=== PATIENT | male | born 1985 | race Caucasian/White ===

== ENCOUNTER 2018-07-31 11:23 | Inpatient (IN) | payer OTHER ==
[~2018-07-31] VITALS: Ht 185.4 cm; Wt 63.5 kg
[2018-07-31] MEDS ORDERED: HYDROmorphone 2 MG/ML VIAL IV ONE (11:45)
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
--- NOTE | 2018-07-31 12:19 | EKG ---
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
[2018-07-31 12:23] LABS: BASO % 0 % (0-3); EOS % 0 % (0-3); HEMATOCRIT 40.1 % (39.0-53.0); HEMOGLOBIN 14.2 g/dL (13.0-17.5); LYMPH # 0.8 x10^3/uL (1.0-4.8); LYMPH % 7 % (24-48); MEAN CORPUSCULAR HEMOGLOBIN 32 pg (25-35); MEAN CORPUSCULAR HGB CONC 36 g/dL (31-37); MEAN CORPUSCULAR VOLUME 89 fL (79-100); MONO # 0.4 x10^3/uL (0.0-1.1); MONO % 4 % (0-9); NEUT # 9.5 x10^3uL (1.8-7.7); NEUT % 88 % (31-73); PLATELET COUNT 279 x10^3/uL (140-400); RED BLOOD COUNT 4.53 x10^6/uL (4.30-5.70); RED CELL DISTRIBUTION WIDTH 12.7 % (11.5-14.5); WHITE BLOOD COUNT 10.8 x10^3/uL (4.0-11.0)
--- NOTE | 2018-07-31 12:24 | RAD ---
Portable chest, 07/31/2018: HISTORY: Preop evaluation, hip fracture The heart size and pulmonary vascularity are normal. No pulmonary infiltrate is seen. There is no evidence of pleural fluid. A mild thoracic scoliosis is noted. IMPRESSION: No acute cardiopulmonary abnormality is detected. Electronically signed by: Carlos Burleson MD (07/31/2018 12:21 PM) [facility]
[2018-07-31 12:31] LABS: CALCIUM 8.9 mg/dL (8.5-10.1); CREATININE 0.7 mg/dL (0.7-1.3); GFR 129.1; POTASSIUM 3.7 mmol/L (3.5-5.1)
[2018-07-31 12:54] LABS: % BANDS 2 % (0-9); % LYMPHS 7 % (24-48); % MONOS 2 % (0-10); % SEGS 89 % (35-66); PLT ESTIMATE ADEQUATE (ADEQUATE)
[2018-07-31] MEDS ORDERED: IV DEXTROSE 5%-LACT RINGERS 1,000 ML IV ONE (13:00)
[2018-07-31] MEDS ORDERED: MORPHINE SULFATE 4 MG/ML VIAL. IV PRN (13:00)
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
[2018-07-31 14:30] VITALS: BP 136/81
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
[2018-07-31] MEDS ORDERED: KETOROLAC 30 MG/ML VIAL. IV PRN (16:15)
[2018-07-31] MEDS ORDERED: HYDROcodone/APAP 5/325MG 1 TAB TABLET PO PRN (16:15)
[2018-07-31] MEDS ORDERED: ACETAMINOPHEN 325 MG TABLET. PO PRN (16:15)
[2018-07-31] MEDS ORDERED: BISACODYL 10 MG SUPP.RECT. PR PRN (16:15)
[2018-07-31] MEDS ORDERED: LACTULOSE 20 GM/30 ML SOLUTION. PO PRN (16:15)
[2018-07-31] MEDS ORDERED: ONDANSETRON PF 4 MG/2 ML VIAL. IV PRN (16:15)
[2018-07-31] MEDS ORDERED: HALOPERIDOL 0.5 MG TABLET. PO PRN (16:30)
[2018-07-31 19:00] VITALS: BP 117/75
[2018-07-31] MEDS: MIRTAZAPINE 15 MG TABLET PO SCH (21:39)
[2018-07-31] MEDS: SENNOSIDES/DOCUSATE 8.6/50MG TABLET. PO SCH (21:39)
[2018-07-31] MEDS: OLANZapine 5 MG TABLET PO SCH (21:40)
[2018-07-31 23:00] VITALS: BP 115/61
[2018-08-01] VITALS (9 sets, daily range): BP systolic 108–139; BP diastolic 54–84
[2018-08-01] MEDS ORDERED: MORPHINE SULFATE 5 MG, KETOROLAC 30MG VIAL 30 MG, ROPIVacaine 0.5% PF 60 ML, EPINEPHrin... INT ART ONE ×5 (06:00)
[2018-08-01] MEDS: MORPHINE SULFATE 2 MG/ML VIAL. IV PRN ×2 (08:54→16:16)
[2018-08-01] MEDS: SENNOSIDES/DOCUSATE 8.6/50MG TABLET. PO SCH ×2 (09:00→20:52)
[2018-08-01] MEDS: OLANZapine 5 MG TABLET PO SCH ×3 (09:00→20:53)
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
[2018-08-01] MEDS ORDERED: ceFAZolin SODIUM 1 GM in IV DEXTROSE 5% 50 ML IV ONE (09:45)
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
[2018-08-01] MEDS ORDERED: PROPOFOL 20 ML IV ONE ×2 (12:57→15:16)
[2018-08-01] MEDS ORDERED: LIDOCAINE 2% PF Vial for OR 5 ML VIAL. ONE (12:57)
[2018-08-01] MEDS ORDERED: ONDANSETRON PF 4 MG/2 ML VIAL. ONE (12:58)
[2018-08-01] MEDS ORDERED: ROCURONIUM 50 MG/5 ML VIAL. ONE (12:58)
[2018-08-01] MEDS ORDERED: DEXAMETHASONE SOD PHOS 20 MG/5 ML VIAL. ONE (12:58)
[2018-08-01] MEDS ORDERED: fentaNYL PF VIAL 100 MCG/2 ML VIAL ONE ×2 (12:59→14:33)
[2018-08-01] MEDS ORDERED: MIDAZOLAM HCL/PF 2 MG/2 ML VIAL. ONE (13:00)
--- NOTE | 2018-08-01 13:55 | PDOC4 ---
Operative Note Operative Note Date of procedure: 08/01/2018 Surgeon: Mo Godfrey [place] Coach: Vidya Springer, certified driver examiner Preoperative diagnosis: Subacute displaced left femoral neck fracture Postoperative diagnosis: Same Procedure performed: Left hip hemiarthroplasty Anesthesia: Gen. Blood loss: 300 mL Complications: None Components inserted: Mtz and nephew size 4 standard offset anthology femoral stem with a 46 mm +0 unipolar COBOL chrome head Reason for procedure: Patient is a 32-year-old inmate with schizophrenia who was recently found to have a femoral neck fracture, uncertain timeframe when he suffered this injury. I had a discussion of the pros and cons regarding treatment options with him and in the end we opted to proceed with a left hip hemiarthroplasty. Description of procedure: Patient was greeted preoperative area by myself for the correct extremity was verified and marked. Antibiotics were started as he was brought back to the operating room. Once in the operative room, he had successful induction of a general anesthetic we then transferred him gently supine to the operating table and secured to bed with all pressure points padded and a lateral decubitus position with the left side up and axillary roll was used. He was held the bed with our hip positioning devices. Left lower extremity was then prepped and draped in our usual sterile fashion including an [place]. Standard timeout was conducted. I then palpated and marked surface anatomy and made my standard posterolateral skin incision. Electrocautery was used for dissection and hemostasis. Identified the fascia a lot of his thigh and split this in line with skin incision, bluntly splitting the gluteus mita proximally through its fibers. I swept result tissue posteriorly. I then placed myself retaining retractor and had his knee padded on a well-padded Jenkins stand. I then took down the quadratus and piriformis and take the piriformis for later repair. Identified the hip capsule and incised this in a T-type incision. After this, I identified the fracture site and performed my neck cut 1 cm proximal to the lesser trochanter remove this bony debris. I then remove the femoral head from the acetabulum and inspected the acetabulum. Fairly free from wear. No loose debris. I irrigated out thoroughly. The femoral head was measured and I trialed various head sizes and selected the above size. After this, repositioned the leg and used the proximal femoral elevator to help facilitate this. I began with the britney cutting osteotome followed by the canal finding reamer followed by the lateralizing reamer. After this, I broached up to the selected size which I felt gave a good fit and fill. I then trialed about combinations of length and offset and felt the above combination gave the best range of motion and stability. All trial components removed and the operative field was thoroughly irrigated. I then impacted the stem into position and trialed head sizes, I selected the above sizes. I felt this would give him good range of motion stability and leg length. The Lopez taper region was washed and dried after the hip was dislocated again. The head was gently impacted in position and the hip was reduced. Capsule was closed with simple interrupted #2 Ethibond. Piriformis was reapproximated through drill tunnels. Quadratus was repaired with [id number] [id number] Ethibond. I irrigated out the operative field again. I injected my perirticular injection to the renato-incisional soft tissues. After this, fashion was closed with running #2 Quill. Inverted interrupted 20 now multilayered fashion was used for subcutaneous tissue and saadia for skin. Mtz & Nephew marichuy wound dressing was applied. All counts correct 2 prior to wound closure. No complications. He was then laid supine and transferred gently supine to the recovery room cart. He is taken to the PACU in a stable and extubated condition. Postoperative plan is to readmitted to the floor under the care of his primary team. He will receive DVT and antibiotic prophylaxis. I will follow along with his postoperative course. MO GODFREY II, MD Aug 01, 2018 13:55
[2018-08-01] MEDS ORDERED: ePHEDrine PF IN SALINE 50 MG/5 ML DISP.SYRIN IV ONE (14:26)
[2018-08-01] MEDS ORDERED: PHENYLEPHRINE in 0.9% NACL PF 1 MG/10 ML SYRINGE. IV ONE (14:26)
[2018-08-01] MEDS ORDERED: NEOSTIGMINE METHYLSULFATE 5 MG/5 ML SYRINGE. ONE (15:15)
[2018-08-01] MEDS ORDERED: GLYCOPYRROLATE 1 MG/5 ML VIAL. ONE (15:15)
[2018-08-01] MEDS ORDERED: PROCHLORPERAZINE 10 MG/2 ML VIAL. ONE (15:49)
[2018-08-01] MEDS: PROCHLORPERAZINE 10 MG/2 ML VIAL. IV PRN ×2 (16:15→16:28)
[2018-08-01] MEDS: MIRTAZAPINE 15 MG TABLET PO SCH (20:52)
[2018-08-01] MEDS: HYDROcodone/APAP 5/325MG 1 TAB TABLET PO PRN (20:53)
[2018-08-01] MEDS: ceFAZolin SODIUM 1 GM in IV DEXTROSE 5% 50 ML IV SCH (20:54)
[2018-08-02] MEDS: ceFAZolin SODIUM 1 GM in IV DEXTROSE 5% 50 ML IV SCH ×2 (02:52→07:43)
[2018-08-02 03:00] VITALS: BP 110/63
[2018-08-02] MEDS: HYDROcodone/APAP 5/325MG 1 TAB TABLET PO PRN ×2 (03:50→13:31)
[2018-08-02 07:00] VITALS: BP 108/57
[2018-08-02] MEDS ORDERED: fentaNYL PF VIAL 100 MCG/2 ML VIAL IV PRN ×2 (07:00)
[2018-08-02] MEDS ORDERED: HYDROmorphone 2 MG/ML VIAL IV PRN (07:00)
[2018-08-02] MEDS ORDERED: ONDANSETRON PF 4 MG/2 ML VIAL. IV PRN (07:00)
[2018-08-02] MEDS ORDERED: IV RINGERS,LACTATED 1000ML 1,000 ML IV SCH (07:00)
[2018-08-02] MEDS ORDERED: LIDOCAINE 1% PF 2 ML VIAL. ID PRN (07:00)
[2018-08-02] MEDS ORDERED: MORPHINE SULFATE 2 MG/ML VIAL. IV PRN (07:00)
[2018-08-02 07:01] LABS: BASO % 0 % (0-3); EOS % 0 % (0-3); HEMATOCRIT 33.6 % (39.0-53.0); HEMOGLOBIN 11.5 g/dL (13.0-17.5); LYMPH # 1.7 x10^3/uL (1.0-4.8); LYMPH % 14 % (24-48); MEAN CORPUSCULAR HEMOGLOBIN 31 pg (25-35); MEAN CORPUSCULAR HGB CONC 34 g/dL (31-37); MEAN CORPUSCULAR VOLUME 89 fL (79-100); MONO # 1.2 x10^3/uL (0.0-1.1); MONO % 9 % (0-9); NEUT # 9.4 x10^3uL (1.8-7.7); NEUT % 77 % (31-73); PLATELET COUNT 251 x10^3/uL (140-400); RED BLOOD COUNT 3.78 x10^6/uL (4.30-5.70); RED CELL DISTRIBUTION WIDTH 12.8 % (11.5-14.5); WHITE BLOOD COUNT 12.3 x10^3/uL (4.0-11.0)
[2018-08-02 07:21] LABS: ALBUMIN 2.8 g/dL (3.4-5.0); ALBUMIN/GLOBULIN RATIO 0.9 (1.0-1.7); CALCIUM 8.4 mg/dL (8.5-10.1); CREATININE 0.7 mg/dL (0.7-1.3); GFR 129.1; POTASSIUM 3.6 mmol/L (3.5-5.1); TOTAL BILIRUBIN 0.3 mg/dL (0.2-1.0); TOTAL PROTEIN 5.9 g/dL (6.4-8.2)
[2018-08-02] MEDS: OLANZapine 5 MG TABLET PO SCH ×2 (07:44→14:00)
[2018-08-02] MEDS: SENNOSIDES/DOCUSATE 8.6/50MG TABLET. PO SCH (07:44)
--- NOTE | 2018-08-02 08:09 | PDOC ---
ORTHO PROGRESS NOTES Subjective Mo tells me that is thigh and hip feel better, but he still has pain there. He is tolerating a diet. No particular concerns today. Vitals Vital Signs Date Time Temp Pulse Resp B/P (MAP) Pulse Ox O2 Delivery O2 Flow Rate FiO2 08/02/18 07:00 98.9 94 16 108/57 (74) 97 Room Air 98.9 08/01/18 15:59 10 Labs Laboratory Tests Test 07/31/18 12:10 07/31/18 23:20 08/02/18 06:08 White Blood Count 10.8 x10^3/uL (4.0-11.0) 12.3 x10^3/uL (4.0-11.0) Red Blood Count 4.53 x10^6/uL (4.30-5.70) 3.78 x10^6/uL (4.30-5.70) Hemoglobin 14.2 g/dL (13.0-17.5) 11.5 g/dL (13.0-17.5) Hematocrit 40.1 % (39.0-53.0) 33.6 % (39.0-53.0) Mean Corpuscular Volume 89 fL (79-100) 89 fL (79-100) Mean Corpuscular Hemoglobin 32 pg (25-35) 31 pg (25-35) Mean Corpuscular Hemoglobin Concent 36 g/dL (31-37) 34 g/dL (31-37) Red Cell Distribution Width 12.7 % (11.5-14.5) 12.8 % (11.5-14.5) Platelet Count 279 x10^3/uL (140-400) 251 x10^3/uL (140-400) Neutrophils (%) (Auto) 88 % (31-73) 77 % (31-73) Lymphocytes (%) (Auto) 7 % (24-48) 14 % (24-48) Monocytes (%) (Auto) 4 % (0-9) 9 % (0-9) Eosinophils (%) (Auto) 0 % (0-3) 0 % (0-3) Basophils (%) (Auto) 0 % (0-3) 0 % (0-3) Neutrophils # (Auto) 9.5 x10^3uL (1.8-7.7) 9.4 x10^3uL (1.8-7.7) Lymphocytes # (Auto) 0.8 x10^3/uL (1.0-4.8) 1.7 x10^3/uL (1.0-4.8) Monocytes # (Auto) 0.4 x10^3/uL (0.0-1.1) 1.2 x10^3/uL (0.0-1.1) Eosinophils # (Auto) 0.0 x10^3/uL (0.0-0.7) 0.0 x10^3/uL (0.0-0.7) Basophils # (Auto) 0.0 x10^3/uL (0.0-0.2) 0.0 x10^3/uL (0.0-0.2) Segmented Neutrophils % 89 % (35-66) Band Neutrophils % 2 % (0-9) Lymphocytes % 7 % (24-48) Monocytes % 2 % (0-10) Platelet Estimate Adequate (ADEQUATE) Prothrombin Time 14.0 SEC (11.7-14.0) Prothromb Time International Ratio 1.1 (0.8-1.1) Sodium Level 139 mmol/L (136-145) 143 mmol/L (136-145) Potassium Level 3.7 mmol/L (3.5-5.1) 3.6 mmol/L (3.5-5.1) Chloride Level 101 mmol/L (98-107) 106 mmol/L (98-107) Carbon Dioxide Level 31 mmol/L (21-32) 31 mmol/L (21-32) Anion Gap 7 (6-14) 6 (6-14) Blood Urea Nitrogen 13 mg/dL (8-26) 9 mg/dL (8-26) Creatinine 0.7 mg/dL (0.7-1.3) 0.7 mg/dL (0.7-1.3) Estimated GFR (Cockcroft-Gault) 129.1 129.1 Glucose Level 113 mg/dL (70-99) 106 mg/dL (70-99) Calcium Level 8.9 mg/dL (8.5-10.1) 8.4 mg/dL (8.5-10.1) Nasal Screen MRSA (PCR) Negative (Negative) BUN/Creatinine Ratio 13 (6-20) Total Bilirubin 0.3 mg/dL (0.2-1.0) Aspartate Amino Transf (AST/SGOT) 14 U/L (15-37) Alanine Aminotransferase (ALT/SGPT) 21 U/L (16-63) Alkaline Phosphatase 60 U/L (46-116) Total Protein 5.9 g/dL (6.4-8.2) Albumin 2.8 g/dL (3.4-5.0) Albumin/Globulin Ratio 0.9 (1.0-1.7) Laboratory Tests Test 08/02/18 06:08 White Blood Count 12.3 x10^3/uL (4.0-11.0) Red Blood Count 3.78 x10^6/uL (4.30-5.70) Hemoglobin 11.5 g/dL (13.0-17.5) Hematocrit 33.6 % (39.0-53.0) Mean Corpuscular Volume 89 fL (79-100) Mean Corpuscular Hemoglobin 31 pg (25-35) Mean Corpuscular Hemoglobin Concent 34 g/dL (31-37) Red Cell Distribution Width 12.8 % (11.5-14.5) Platelet Count 251 x10^3/uL (140-400) Neutrophils (%) (Auto) 77 % (31-73) Lymphocytes (%) (Auto) 14 % (24-48) Monocytes (%) (Auto) 9 % (0-9) Eosinophils (%) (Auto) 0 % (0-3) Basophils (%) (Auto) 0 % (0-3) Neutrophils # (Auto) 9.4 x10^3uL (1.8-7.7) Lymphocytes # (Auto) 1.7 x10^3/uL (1.0-4.8) Monocytes # (Auto) 1.2 x10^3/uL (0.0-1.1) Eosinophils # (Auto) 0.0 x10^3/uL (0.0-0.7) Basophils # (Auto) 0.0 x10^3/uL (0.0-0.2) Sodium Level 143 mmol/L (136-145) Potassium Level 3.6 mmol/L (3.5-5.1) Chloride Level 106 mmol/L (98-107) Carbon Dioxide Level 31 mmol/L (21-32) Anion Gap 6 (6-14) Blood Urea Nitrogen 9 mg/dL (8-26) Creatinine 0.7 mg/dL (0.7-1.3) Estimated GFR (Cockcroft-Gault) 129.1 BUN/Creatinine Ratio 13 (6-20) Glucose Level 106 mg/dL (70-99) Calcium Level 8.4 mg/dL (8.5-10.1) Total Bilirubin 0.3 mg/dL (0.2-1.0) Aspartate Amino Transf (AST/SGOT) 14 U/L (15-37) Alanine Aminotransferase (ALT/SGPT) 21 U/L (16-63) Alkaline Phosphatase 60 U/L (46-116) Total Protein 5.9 g/dL (6.4-8.2) Albumin 2.8 g/dL (3.4-5.0) Albumin/Globulin Ratio 0.9 (1.0-1.7) Notes He is awake and alert and sitting in bed. Dressing is intact. Normal motor and sensation is present in his left lower extremity Assessment and Plan I would like PT and OT to evaluate him. He will require anticoagulation for 1 month. From my standpoint he can be discharged whenever he is medically stable. RODRÍGUEZ GODFREY II, MD Aug 02, 2018 08:09
[2018-08-02] MEDS ORDERED: ENOXAPARIN 40 MG/0.4 ML SYRINGE. SQ SCH (09:00)
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
[2018-08-02 11:00] VITALS: BP 109/73
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
--- NOTE | 2018-08-02 11:47 | DISCH ---
DISCHARGE INSTRUCTIONS Condition on Discharge Condition on Discharge: Stable Activity After Discharge Activity Instructions for Disc: Activity as tolerated Bathing Instructions: Shower-keep dressing dry Lifting Instructions after Dis: No heavy lifting, No pulling or pushing Weight Bearing Status after Di: Partial weight bearing, Touch down weight bearing Diet after Discharge Diet after Discharge: Regular Wound Incision Care Wound/Incision Care: Change dressing Checks after Discharge Checks after discharge: Check blood press - daily Community/Resources/Services Services at Discharge: PT EVALUATE & TREAT Contacting the DR. after DC Call your doctor for: If your condition worsens MINERVA FLOWERS MD Aug 02, 2018 11:47
[2018-08-02] MEDS ORDERED: ACET325T9 PO (11:51)
[2018-08-02] MEDS ORDERED: ENOX40DI3 SQ (11:51)
[2018-08-02] MEDS ORDERED: OLAN5TAB9 PO ×2 (11:51)
[2018-08-02 15:00] VITALS: BP 108/59
--- NOTE | 2018-08-06 16:08 | PATHOLOGY ---
[facility] Accession Number: [id number] . 01 Material submitted: . BONE LT HIP . 01 Clinical history: . Left hip fracture . 02 Diagnosis: Femoral head, left hip hemiarthroplasty: - Focal fragmentation of bony trabeculae and recent intertrabecular hemorrhage consistent with fracture. (JPM:andree; 08/06/2018) QMS/08/06/2018 . 02 Comment: There is no evidence of malignancy. . 02 Electronically signed: . Broderick Álvarez MD, Pathologist NPI- [id number] . 01 Gross description: . Received in formalin labeled "Darwin Adam, bone Lt hip," is a femoral head measuring 4.5 x 4.5 x 4.3 cm in greatest dimensions. The articular surface is smooth and bryan to light brown in appearance, with no gross evidence of eburnation. The bone margin is jagged and hemorrhagic in appearance, grossly consistent with a fracture site. Sectioning reveals a pale yellow to dark pink-red, largely hemorrhagic marrow space. [employer] sections of the bone margin are submitted in cassettes A1 and A2, following decalcification. ([facility]; 08/05/2018) XDC/XDC . 02 Pathologist provided ICD-10: S72.092A . 02 CPT . 402403, 227693 Specimen Comment: A courtesy copy of this report has been sent to Specimen Comment: [phone]. Specimen Comment: Report sent to Performed at: 01 [facility] [address], [place] [id number] MD Jamie Vincent MD Phone: [phone] Performed at: 02 [facility] [address] [place], [place] [id number] MD Broderick Álvarez MD Phone: [phone]
== END 2018-08-02 15:00 | disposition home or self-care (01) | DRG 469 ==
LOC: ER 11:23 → EEVIPCON 11:23 → 4 NORTH 12:48
PROVIDERS: ADMIT Internal Medicine; ATTEND Internal Medicine
PROC: 0SRS01Z Replacement of Left Hip Joint, Femoral Surface with Metal Synthetic Substitute, Open Approach (ICD-10-PCS; principal; 2018-08-01 13:15)
DX: S72.012A Unspecified intracapsular fracture of left femur, initial encounter for closed fracture (principal); E43 Unspecified severe protein-calorie malnutrition; F20.0 Paranoid schizophrenia; Z68.1 Body mass index [BMI] 19.9 or less, adult; F17.210 Nicotine dependence, cigarettes, uncomplicated; R73.9 Hyperglycemia, unspecified; S09.90XA Unspecified injury of head, initial encounter; Y04.8XXA Assault by other bodily force, initial encounter; Y93.89 Activity, other specified; Y92.091 Bathroom in other non-institutional residence as the place of occurrence of the external cause; Y99.8 Other external cause status; Z81.8 Family history of other mental and behavioral disorders
CPT/HCPCS: 36415; 70450; 71045; 73502; 73552; 80048; 80053; 85007; 85025; 85610; 87641; 93005; 96374; A7015; C1713; J0171; J0690; J0780; J1100; J1170; J1650; J1885; J2001; J2250; J2270; J2370; J2405; J2704; J2710; J2795; J3010; J3490; J7030; J7120; 97110; 97116; 97535; 99285-25